=== PATIENT | female | born 1990 | race Caucasian/White ===

== ENCOUNTER 2018-08-03 14:34 | Emergency (ER) | payer MEDICAID, OTHER ==
[~2018-08-03] VITALS: Ht 154.9 cm; Wt 69.0 kg
[~2018-08-03 14:34] MED LIST: IBUP-1222 PO; PNV1TABL4 PO
[2018-08-03 14:38] VITALS: BP 123/74
[2018-08-03] MEDS ORDERED: DIPH,PERTUSS(ACELL),TET VAC/PF 0.5 ML IM-VACC ONE ×2 (15:00→15:24)
== END 2018-08-03 15:43 | disposition home or self-care (01) ==
LOC: ED 15:00
DX: S61.300A Unspecified open wound of right index finger with damage to nail, initial encounter (principal); W23.0XXA Caught, crushed, jammed, or pinched between moving objects, initial encounter; Y93.89 Activity, other specified; Y92.89 Other specified places as the place of occurrence of the external cause; Y99.0 Civilian activity done for income or pay
CPT/HCPCS: 90471; 90715; 99283

== ENCOUNTER 2020-10-01 01:50 | Inpatient (IN) | payer MEDICAID, OTHER ==
[~2020-10-01] VITALS: Ht 157.5 cm; Wt 75.0 kg
[2020-10-01 02:03] VITALS: BP 109/72
[2020-10-01] MEDS ORDERED: PREN1TAB60 PO (02:03)
[2020-10-01] MEDS ORDERED: FENTANYL PF 100 MCG/2ML IVPush PRN (04:00)
[2020-10-01] MEDS ORDERED: OXYTOCIN 30U/ 0.9% NaCL 500ML 500 ML IV ONE (04:00)
[2020-10-01] MEDS ORDERED: ONDANSETRON 2MG/ML, 2ML IVPush PRN (04:00)
[2020-10-01] MEDS ORDERED: D5%-LACTATED RINGERS 1,000 ML IV SCH (04:00)
[2020-10-01] MEDS ORDERED: FENTANYL PF 100 MCG/2ML IV PRN (04:00)
[2020-10-01] MEDS ORDERED: LACTATED RINGERS 1,000 ML IV SCH (04:00)
[2020-10-01] MEDS ORDERED: TERBUTALINE 1 MG/ML, 1ML SQ PRN (04:00)
[2020-10-01] MEDS ORDERED: TERBUTALINE 1 MG/ML, 1ML IVPush PRN (04:00)
[2020-10-01] MEDS ORDERED: CALCIUM CARBONATE 500 MG TAB.CHEW PO PRN (04:00)
[2020-10-01] MEDS ORDERED: vitamin d PO (04:30)
[2020-10-01 04:37] LABS: BASOPHILS % (AUTO) 1 % (0-1); EOSINOPHILS % (AUTO) 1 % (1-7); LYMPHOCYTES % (AUTO) 28 % (22-44); MEAN CORPUSCULAR HGB CONC 34.1 g/dL (32.4-35.8); MONOCYTES % (AUTO) 9 % (2-9); NEUTROPHILS % (AUTO) 62 % (42-75); PLATELET COUNT 197 x10^3/uL (130-400); RED BLOOD COUNT 4.39 x10^6/uL (3.82-5.3); RED CELL DISTRIBUTION WIDTH 13.9 % (9.6-15.2)
[2020-10-01 04:43] LABS: MD NO
[2020-10-01] MEDS ORDERED: OXYTOCIN 30U/ 0.9% NaCL 500ML 500 ML ONE ×2 (05:14→06:01)
[2020-10-01] MEDS ORDERED: IBUPROFEN 600 MG TABLET ONE (05:40)
[2020-10-01] MEDS: OXYTOCIN 30U/ 0.9% NaCL 500ML 500 ML IV SCH ×2 (05:40→06:10)
[2020-10-01] MEDS: IBUPROFEN 600 MG TABLET PO PRN ×2 (05:45→20:48)
[2020-10-01] MEDS ORDERED: MISOPROSTOL 200 MCG TABLET PR PRN (06:00)
[2020-10-01] MEDS ORDERED: SIMETHICONE 80 MG CHEW TAB PO PRN (06:00)
[2020-10-01] MEDS ORDERED: OXYcodone/APAP 5/325MG TABLET PO PRN (06:00)
[2020-10-01] MEDS ORDERED: ACETAMINOPHEN 325 MG TABLET PO PRN (06:00)
[2020-10-01] MEDS ORDERED: OXYcodone IR 5MG TABLET PO PRN (06:00)
[2020-10-01] MEDS ORDERED: ONDANSETRON 2MG/ML, 2ML IV PRN (06:00)
[2020-10-01 07:25] VITALS: BP 123/71
[2020-10-01] MEDS: DOCUSATE 100 MG CAPSULE PO PRN (10:11)
[2020-10-01] MEDS: PRENATAL VIT/IRON/FA 1 EACH TABLET PO SCH (10:11)
[2020-10-01 12:15] VITALS: BP 94/60
[2020-10-01 16:20] VITALS: BP 116/66
[2020-10-01 16:30] LABS: BASOPHILS % (AUTO) 1 % (0-1); EOSINOPHILS % (AUTO) 0 % (1-7); LYMPHOCYTES % (AUTO) 13 % (22-44); MEAN CORPUSCULAR HEMOGLOBIN 30.6 pg (27.0-34.8); MEAN CORPUSCULAR HGB CONC 33.5 g/dL (32.4-35.8); MONOCYTES % (AUTO) 8 % (2-9); NEUTROPHILS % (AUTO) 78 % (42-75); PLATELET COUNT 189 x10^3/uL (130-400); RED BLOOD COUNT 3.99 x10^6/uL (3.82-5.3); RED CELL DISTRIBUTION WIDTH 13.7 % (9.6-15.2)
[2020-10-01 16:31] LABS: MD NO
[2020-10-01 20:20] VITALS: BP 125/55
[2020-10-02 01:45] VITALS: BP 104/66
[2020-10-02] MEDS: OXYTOCIN 30U/ 0.9% NaCL 500ML 500 ML IV SCH ×3 (02:00→22:00)
[2020-10-02 09:30] VITALS: BP 107/67
[2020-10-02] MEDS: DOCUSATE 100 MG CAPSULE PO PRN ×2 (09:40→19:23)
[2020-10-02] MEDS: PRENATAL VIT/IRON/FA 1 EACH TABLET PO SCH (09:40)
[2020-10-02] MEDS: IBUPROFEN 600 MG TABLET PO PRN (09:44)
[2020-10-02 20:30] VITALS: BP 127/79
[2020-10-03] MEDS: IBUPROFEN 600 MG TABLET PO PRN ×2 (00:31→09:17)
[2020-10-03] MEDS: OXYTOCIN 30U/ 0.9% NaCL 500ML 500 ML IV SCH ×2 (02:51→02:52)
[2020-10-03] MEDS ORDERED: IBUP-1223 PO (08:42)
[2020-10-03] MEDS ORDERED: DOCU100C33 PO (08:43)
[2020-10-03 09:15] VITALS: BP 105/66
[2020-10-03] MEDS: PRENATAL VIT/IRON/FA 1 EACH TABLET PO SCH (09:17)
[2020-10-03] MEDS: DOCUSATE 100 MG CAPSULE PO PRN (09:17)
== END 2020-10-03 15:10 | disposition home or self-care (01) | DRG 807 ==
LOC: LDOP 01:50 → LDIP 03:54 → 2NW 07:30
PROVIDERS: ADMIT Obstetrics & Gynecology; ATTEND Obstetrics & Gynecology
PROC: 10E0XZZ Delivery of Products of Conception, External Approach (ICD-10-PCS; principal; 2020-10-01)
DX: O80 Encounter for full-term uncomplicated delivery (principal); Z37.0 Single live birth; Z3A.40 40 weeks gestation of pregnancy; Z20.828 Contact with and (suspected) exposure to other viral communicable diseases
CPT/HCPCS: 36415; 85025; 86592; 86850; 86900; 87635; G0378; J2590; J7120

== ENCOUNTER 2021-06-24 09:49 | Emergency (ER) | payer MEDICAID ==
[~2021-06-24] VITALS: Ht 157.5 cm; Wt 69.0 kg
[~2021-06-24 09:49] MED LIST changes: +DOCU100C33 PO; +IBUP-1223 PO; +PREN1TAB60 PO; +vitamin d PO
--- NOTE | 2021-06-24 10:16 | NUR ---
pt placed on nibp and o2 monitoring ua at bedside.
--- NOTE | 2021-06-24 10:36 | NUR ---
pt to us now
[2021-06-24 11:31] VITALS: BP 113/53
[2021-06-24 11:40] LABS: BASOPHILS % (AUTO) 0 % (0-1); EOSINOPHILS % (AUTO) 1 % (1-7); LYMPHOCYTES % (AUTO) 16 % (22-44); MEAN CORPUSCULAR HEMOGLOBIN 30.6 pg (27.0-34.8); MEAN CORPUSCULAR HGB CONC 34.4 g/dL (32.4-35.8); MEAN PLATELET VOLUME 8.5 fL (7.4-10.4); MONOCYTES % (AUTO) 6 % (2-9); NEUTROPHILS % (AUTO) 77 % (42-75); PLATELET COUNT 300 x10^3/uL (130-400); RED BLOOD COUNT 4.49 x10^6/uL (3.82-5.3); RED CELL DISTRIBUTION WIDTH 13.9 % (9.6-15.2)
[2021-06-24 11:59] LABS: ALBUMIN 3.3 g/dL (3.4-5.0); ANION GAP 9 mmol/L (5-15); CALCIUM 9.1 mg/dL (8.5-10.1); CHLORIDE 106 mmol/L (98-107); CREATININE 0.49 mg/dL (0.55-1.02)
[2021-06-24 13:25] LABS: MICROSCOPIC INDICATED
== END 2021-06-24 13:07 | disposition home or self-care (01) ==
LOC: ED 11:15
DX: O20.0 Threatened abortion (principal); Z3A.10 10 weeks gestation of pregnancy
CPT/HCPCS: 36415; 76801; 80048; 81001; 82040; 84702; 85025; 86901; 87086; 99284